=== PATIENT | male | born 2000 | race Asian ===

== ENCOUNTER 2025-05-07 17:52 | Emergency (ER) | payer BC, SELFPAY ==
[2025-05-07 18:14] VITALS: BP 139/80; PULSE 99; RESP 18; TEMP 38.3; O2SAT 98
--- NOTE | 2025-05-07 18:39 | XR_ITS ---
Examination: PA lateral chest 2 views TECHNIQUE: Upright PA and lateral chest 2 views Date and time: May 07, 2025, 1842 hours INDICATIONS: Fever coughing beginning 18 days ago. FINDINGS: Normal heart size. Lungs are clear. The osseous structures are intact. IMPRESSION: No active disease.
[2025-05-07 19:11] LABS: Strep A Rapid Negative (Negative)
--- NOTE | 2025-05-07 20:15 | EDNOTE_ITS ---
<Statement entered by Della Pozo MD - 05/08/25 04:07> As co-signing physician, I was present and available for consult prn. I concur with the plan and care as documented by the midlevel provider. Upper Respiratory Inf. RME/HPI General Chief Complaint: Fever Stated Complaint: FEVER/COUGH X 8 DAYS Time Seen by Provider: 05/07/25 18:27 Arrival date/time: 05/07/25 17:52 RME / HPI RME / HPI Narrative: 25-year-old male presents to the ED with a complaint of fever of 101 degrees as well as a dry cough. He has had an associated headache. He denies any fever higher than the 101 documented here. He denies any runny nose, nasal congestion, ear pain, sore throat, sinus pressure or drainage, nausea or vomiting, diarrhea or abdominal pain. He denies any body aches. Related Data Previous Rx's ?Medication ?Instructions ?Recorded albuterol sulfate 90 mcg/actuation 2 puff inhalation Q 4H PRN 05/07/25 aerosol inhaler shortness of breath or wheez ing #8.5 grams azithromycin 250 mg tablet See Rx Instructions PO .COM PLEX #6 05/07/25 tabs benzonatate 200 mg capsule 200 mg PO TID PRN cough #15 caps 05/07/25 cetirizine 10 mg tablet (Zyrtec) 10 mg PO QDAY allergy symptoms #30 05/07/25 tabs Allergies Allergy/AdvReac Type Severity Reaction Status Date / Time No Known Allergies Allergy Verified 05/07/25 17:55 Review of Systems Review of Systems Systems Reviewed: All systems reviewed, normal except as documented Past Medical History Social History SMOKING STATUS: Never smoker ED Exam Narrative Physical exam: A&O, afebrile and non-toxic appearing 25-year-old male, no acute distress. Lung are diminished at the bases otherwise clear, RRR, Abdomen is soft, nontender, and non-distended. TMs and pharynx are without erythema. Nares are pale and boggy. No sinus tenderness noted. Moves all extremities well. Course Course Course Narrative: COVID, influenza A/B, and rapid strep are negative. XR chest reveals no active disease. Patient was given Tylenol 1 g p.o. Quality Measures none Orders Category Date Time Status Bedside COVID-19 Antigen Test NOW Care 05/07/25 18:39 Active Bedside Influenza A&B Antigen Test NOW Care 05/07/25 18:39 Completed XR chest 2V Stat Exams 05/07/25 18:39 Completed Strep A Rapid Stat Lab 05/07/25 18:46 Completed Acetaminophen Tab [Tylenol ES Tab] Med 05/07/25 20:14 Once 1,000 mg PO X1 ONE Vital Signs Vital signs: Vital Signs Temperature 101.0 F H 05/07/25 18:14 Pulse Rate 99 05/07/25 18:14 Respiratory Rate 18 05/07/25 18:14 Blood Pressure 139/80 H 05/07/25 18:14 Pulse Oximetry (%) 98 05/07/25 18:14 Oxygen Delivery Method Room Air 05/07/25 18:14 Upper Respiratory Infection MDM Narrative MDM Narrative:: Symptoms, exam and diagnostic studies are consistent with: Bronchitis. Patient was discharged home in stable condition with prescriptions for a Z-Devaughn, albuterol inhale, and Zyrtec. Patient/family advised to follow-up with their PCP in 24-48 hours. Encouraged to return to the ED for any new or worsening symptoms. Patient data External records reviewed:: None Clinical information provided by:: patient Social determinants that could affect healthcare access:: none Patient has the following chronic illnesses:: N/A How is presenting disease/condition affected by chronic disease/condition?: no chronic disease Evaluation data The following diagnostics were reviewed and interpreted by me:: lab results and radiology exam(s) Lab and/or radiology exams considered but not ordered:: N/A Interpretation Summary: As noted above Medications / Prescriptions Medications or Prescriptions considered but not ordered:: N/A Medication administrations:: Tylenol 1 g p.o. Consultations Consultation(s) initiated? (list below): No Diagnosis Upper Respiratory Differential Diagnosis: upper respiratory infection, otitis media, sinusitis, viral infection, bronchitis and influenza Most likely diagnosis given after review of the tests above:: Bronchitis Admission Indicated Admission indicated?: not indicated Explain why admission is indicated or not indicated:: Patient is stable for discharge Admission Request Was there a request for admission?: No Disposition Plan Disposition Plan: Discharge Discharge Attestation Discharge Attestation: The patient and all family members were given an opportunity to ask questions and understood the discharge instructions. Discharge instructions specifically effects, indications for sooner follow up or return to the emergency department, and the expected course of current diagnosis. Patient condition: Stable Discharge Plan Plan Patient Disposition: HOME (Self Care) Discharge Disposition comment: Stable Prescriptions/Referrals Prescriptions/Med Rec: New azithromycin 250 mg tablet See Rx Instructions .ROUTE .COMPLEX Qty: 6 0RF Rx Instructions: For 250 mg dose pack: take 500 mg today (day 1), then 250 mg for 4 days (days 2-5) albuterol sulfate 90 mcg/actuation HFA aerosol inhaler 2 puff inhalation Q4H PRN (Reason: shortness of breath or wheezing) Qty: 8.5 0RF benzonatate 200 mg capsule 200 mg PO TID PRN (Reason: cough) Qty: 15 0RF cetirizine [Zyrtec] 10 mg tablet 10 mg PO QDAY Qty: 30 0RF Referrals: Harinder Kerr MD [Primary Care Provider] - In 1 week Problem List Clinical Impression: Bronchitis Patient/Caregiver Discharge Instructions Education Materials: ED Upper Resp Infec Abx Tx Additional Instructions: Take the antibiotics as prescribed and complete the course even though you may be feeling better. Use the albuterol inhaler as well as the benzonatate to help control the cough. Zyrtec or [id number] antihistamine will help decrease the amount of drainage. Follow-up with your primary care physician in 24 to 48 hours. Return to the ED for any new or worsening symptoms. Print Language: Azeri Stand Alone Forms: Yaquelin Award Info., Patient Portal Info Letter PA/SONIA Supervising Physician PA/SONIA Supervising Physician: Dr. Pozo
[2025-05-07 20:25] VITALS: TEMP 38.3
[2025-05-07] MEDS: ACETAMINOPHEN 500 MG TABLET 1000 MG PO (20:25)
== END 2025-05-07 20:46 | disposition home or self-care (01) ==
PROVIDERS: Physician Assistant; Emergency Provider Emergency Medicine; PCP Family Medicine
DX: J40 Bronchitis, not specified as acute or chronic (principal)
CPT/HCPCS: 71046; 87400; 87651; 87811; 99283; A9270

== ENCOUNTER 2025-05-23 16:19 | Emergency (ER) | payer BC, SELFPAY ==
[2025-05-23 16:43] VITALS: BP 154/81; PULSE 118; RESP 18; TEMP 38.1; O2SAT 97; BMI 26.6
--- NOTE | 2025-05-23 16:51 | PD.EDRME ---
Rapid Medical Screening Exam RME Arrival date/time: 05/23/25 16:19 Chief Complaint: Flu Like Symptoms Vital signs: Vital Signs Temperature 100.6 F H 05/23/25 16:43 Pulse Rate 118 H 05/23/25 16:43 Respiratory Rate 18 05/23/25 16:43 Blood Pressure 154/81 H 05/23/25 16:43 Pulse Oximetry (%) 97 05/23/25 16:43 Oxygen Delivery Method Room Air 05/23/25 16:43 Pulse ox is 97% Vital signs reviewed by provider: Yes [facility] Narrative: Patient is a 25-year-old male who is here 2 weeks ago for bronchitis like symptoms sent home with antibiotics and he became better and returns saying that he had a relapse in his signs and symptoms of cough, fever, runny nose and wheezing.
[2025-05-23 17:25] LABS: Basophils # (Auto) 0.1 Thou/mm3 (0.0-0.2); Basophils % (Auto) 1 % (0-2.5); Eosinophils # (Auto) 0.1 Thou/mm3 (0.0-0.5); Eosinophils % (Auto) 1 % (0-10); Hematocrit 42.2 % (41.0-53.0); Hemoglobin 13.0 g/dL (13.5-16.0); Immature Granulocytes Auto 0.06 Thou/mm3 (0.00-0.00); Lymphocytes # (Auto) 2.5 Thou/mm3 (1.0-4.8); Lymphocytes % (Auto) 20 % (10-50); Mean Corpuscular HGB Conc 30.8 g/dl (31.0-37.0); Mean Corpuscular Hemoglobin 19.6 pg (25.0-35.0); Mean Corpuscular Volume 64 fL (80-100); Monocytes # (Auto) 1.1 Thou/mm3 (0.0-0.8); Monocytes % (Auto) 9 % (0-12); Neutrophils # (Auto) 8.4 Thou/mm3 (1.8-7.7); Neutrophils % (Auto) 69 % (37-80); Nucleated Red Blood Cell # 0.00 Thou/mm3 (0.00-0.00); Nucleated Red Blood Cell % 0 /100 WBC (0); Platelet Count 467 Thou/mm3 (140-440); RDW Standard Deviation 32.9 fL (35.1-43.9); Red Blood Count 6.64 Miln/mm3 (4.50-5.90); White Blood Count 12.2 Thou/mm3 (3.8-10.6)
[2025-05-23 17:40] LABS: Collection Type, Urine Clean Catch
[2025-05-23 17:47] LABS: Alanine Aminotransferase 65 U/L (10-49); Albumin, Serum 4.7 gm/dL (3.5-5.0); Albumin/Globulin Ratio 1.1 (1.2-2.2); Alkaline Phosphatase 70 U/L (46-116); Anion Gap 13 (7-16); Aspartate Amino Transferase 21 U/L (0-34); BUN/Creatinine Ratio 7 Ratio (12-20); Bilirubin,Total 0.3 mg/dL (0.3-1.2); Blood Urea Nitrogen 8 mg/dL (9-23); Calcium 9.6 mg/dL (8.3-10.6); Calcium (Corrected) 9.6 mg/dL (8.5-10.1); Carbon Dioxide 23.3 mMol/L (20.0-31.0); Chloride 102 mMol/L (98-107); Creatinine (Component) 1.2 mg/dL (0.6-1.3); Estimated Creatinine Clearance 84.9 mL/min (>60); Globulin 4.3 gm/dL (2.3-3.5); Glucose 111 mg/dL (74-106); Osmolality,Calculated 274 (275-295); Potassium 3.7 mMol/L (3.4-5.1); Sodium 138 mMol/L (136-145); Total Protein 9.0 gm/dL (5.7-8.2); eGFR > 60 See Note
[2025-05-23 17:49] LABS: Bilirubin,Urine Negative (Negative); Blood,Urine Negative (Negative); Clarity,Urine Clear (Clear/Hazy); Color,Urine Yellow (Lt Yel-Yel); Glucose, Urine Negative (Negative); Ketones,Urine Negative (Negative); Leukocyte Esterase,Urine Negative (Negative); Nitrite,Urine Negative (Negative); PH,Urine 5.5 (5.0-7.0); Protein,Urine Trace (Neg - Trace); RBC,Urine 2 /hpf (0-3); Specific Gravity,Urine 1.020 (1.001-1.035); Squamous Epithelial Cell,Urine 3 /hpf (0-5); Urobilinogen,Urine Negative mg/dL (0.0-1.0); WBC,Urine 2 /hpf (0-5)
--- NOTE | 2025-05-23 18:31 | XR_ITS ---
Examination: PA chest single view TECHNIQUE: Upright PA chest single view Date and time: May 23, 2025 1642 hours INDICATIONS: Coughing fever beginning one week ago FINDINGS: Normal heart size Suspicious for early left perihilar pneumonia Right lung. Intact osseous structures IMPRESSION: Suspicious for early left perihilar pneumonia
--- NOTE | 2025-05-23 18:34 | EDNOTE_ITS ---
Upper Respiratory Inf. RME/HPI General Chief Complaint: Flu Like Symptoms Stated Complaint: FEVER, COUGH Time Seen by Provider: 05/23/25 18:05 Arrival date/time: 05/23/25 16:19 RME / HPI RME / HPI Narrative: 25-year-old male who is here 2 weeks ago for bronchitis like symptoms sent home with antibiotics and he became better and returns saying that he had a relapse in his signs and symptoms of cough, fever, runny nose and wheezing. Patient denies any other complaints. No medications taken prior to ER visit. Related Data Previous Rx's ?Medication ?Instructions ?Recorded albuterol sulfate 90 mcg/actuation 2 puff inhalation Q 4H PRN 05/07/25 aerosol inhaler shortness of breath or wheez ing #8.5 grams azithromycin 250 mg tablet See Rx Instructions PO .COM PLEX #6 05/07/25 tabs benzonatate 200 mg capsule 200 mg PO TID PRN cough #15 caps 05/07/25 cetirizine 10 mg tablet (Zyrtec) 10 mg PO QDAY allergy symptoms #30 05/07/25 tabs levofloxacin 750 mg tablet 750 mg PO Q24H 7 days #7 ta bs 05/23/25 Allergies Allergy/AdvReac Type Severity Reaction Status Date / Time No Known Allergies Allergy Verified 05/07/25 17:55 Review of Systems Review of Systems Narrative Review of Systems: Review of system reviewed and within normal limits except mentioned in HPI ED Exam Narrative Physical exam: VITAL SIGNS: Reviewed. GENERAL APPEARANCE: Alert and interactive, follows commands, no acute distress, HEAD AND FACE: Non-traumatic. ENT: PERRL, pink conjunctivitis, eyelid no trauma, Mucous membrane moist. NECK: Supple, nontender, no nuchal rigidity. CHEST: No tenderness, no crepitus, no paradoxical movement, no retractions. LUNGS: Clear, well ventilated, symmetric, no rales, no wheezing, no ronchi, no stridor, good breath sounds bilaterally. HEART: Regular rate, regular rhythm, no murmur, no gallops. ABDOMEN: Soft, positive bowel sounds, nondistended, no guarding, nontender, no rebound, no masses, RECTAL: Deferred. GENITAL: Deferred. NEUROLOGICAL: Gross motor function intact sensory function intact, Appropriate for age. MUSCULOSKELETAL: low back nontender, full range of motion. EXTREMITIES: Nontender, full range of motion. SKIN: Color pink, dry, no rash, no lacerations, no abrasions, no contusions. LYMPHATICS: Deferred. Course Quality Measures none Orders Category Date Time Status XR chest 1V Stat Exams 05/23/25 18:31 Completed CBC Stat Lab 05/23/25 17:10 Completed COVID-19 Antigen (In-House) Stat Lab 05/23/25 Ordered Cocci Serology IgM with reflex to IgG [Cocci Serology, Lab 05/23/25 18:31 Ordered Unk History] Stat Comprehensive Metabolic Panel Stat Lab 05/23/25 17:10 Completed FLU A&B [Influenza A & B Rapid Panel] Stat Lab 05/23/25 16:58 Ordered Urinalysis Stat Lab 05/23/25 17:23 Completed Levofloxacin [Levaquin] Med 05/23/25 20:20 Discontinued 500 mg PO X1 ONE Vital Signs Vital signs: Vital Signs Temperature 100.6 F H 05/23/25 16:43 Pulse Rate 118 H 05/23/25 16:43 Respiratory Rate 18 05/23/25 16:43 Blood Pressure 154/81 H 05/23/25 16:43 Pulse Oximetry (%) 97 05/23/25 16:43 Oxygen Delivery Method Room Air 05/23/25 16:43 Upper Respiratory Infection MDM Narrative MDM Narrative:: 25-year-old male who is here 2 weeks ago for bronchitis like symptoms sent home with antibiotics and he became better and returns saying that he had a relapse in his signs and symptoms of cough, fever, runny nose and wheezing. Patient denies any other complaints. No medications taken prior to ER visit. Patient's workup today significant for pneumonia otherwise unremarkable. I suspect patient is probably having valley fever. I did a valley fever evaluation, results will be back in 2 days. Patient was advised to follow-up with PCP or call emergency room for the results. Patient data External records reviewed:: None Clinical information provided by:: patient Social determinants that could affect healthcare access:: none Patient has the following chronic illnesses:: None How is presenting disease/condition affected by chronic disease/condition?: no chronic disease Evaluation data The following diagnostics were reviewed and interpreted by me:: lab results and radiology exam(s) Lab and/or radiology exams considered but not ordered:: None Interpretation Summary: See results MDM Medications / Prescriptions Medications or Prescriptions considered but not ordered:: None Medication administrations:: Medication Administration History Discontinued Medications Levofloxacin (Levofloxacin 250 Mg Tablet) 500 mg PO X1 ONE Stop: 05/23/25 20:21 Last Admin: 05/23/25 20:28 Dose: 500 mg Documented By: FRANCISCO Arora Consultations Consultation(s) initiated? (list below): No Diagnosis Upper Respiratory Differential Diagnosis: upper respiratory infection, influenza and other (Fever) Most likely diagnosis given after review of the tests above:: Pneumonia Admission Indicated Admission indicated?: not indicated Admission Request Was there a request for admission?: No Disposition Plan Disposition Plan: Discharge Discharge Attestation Discharge Attestation: The patient and all family members were given an opportunity to ask questions and understood the discharge instructions. Discharge instructions specifically effects, indications for sooner follow up or return to the emergency department, and the expected course of current diagnosis. Patient condition: Stable Discharge Plan Plan Patient Disposition: HOME (Self Care) Discharge Disposition comment: Stable Prescriptions/Referrals Prescriptions/Med Rec: New levofloxacin 750 mg tablet 750 mg PO Q24H 7 Days Qty: 7 0RF No Action azithromycin 250 mg tablet See Rx Instructions .ROUTE .COMPLEX Qty: 6 0RF Rx Instructions: For 250 mg dose pack: take 500 mg today (day 1), then 250 mg for 4 days (days 2-5) albuterol sulfate 90 mcg/actuation HFA aerosol inhaler 2 puff inhalation Q4H PRN (Reason: shortness of breath or wheezing) Qty: 8.5 0RF benzonatate 200 mg capsule 200 mg PO TID PRN (Reason: cough) Qty: 15 0RF cetirizine [Zyrtec] 10 mg tablet 10 mg PO QDAY Qty: 30 0RF Referrals: No Primary/Family,Physician [Primary Care Provider] - In 1 week Problem List Clinical Impression: Pneumonia Patient/Caregiver Discharge Instructions Discharge Activity: activity as tolerated Education Materials: ED Pneumonia (Adult) Additional Instructions: Thank you for the opportunity for serving you today. You are stable for discharged . You are advised to: Follow-up with your PCP in 1 to 2 days Return to ED for worsening of symptoms Increase oral fluids Take medication as prescribed Follow-up with medical records or call emergency room in 2 days regarding your cocci results Print Language: Georgian Stand Alone Forms: Yaquelin Award Info., Patient Portal Info Letter PA/COMPUTER AIDED DESIGN DESIGNER Supervising Physician PA/COMPUTER AIDED DESIGN DESIGNER Supervising Physician: MD Nohemy
[2025-05-23] MEDS: LEVOFLOXACIN 250 MG TABLET 500 MG PO (20:28)
[2025-05-23 20:50] VITALS: BP 143/94; PULSE 112; RESP 16; TEMP 37.3; O2SAT 97
[2025-05-24 12:10] LABS: Cocci Serology, IgM Positive (Negative)
[2025-05-24 12:10] LABS: Cocid Sro, CF/ID (UCD) NO CHG* See Sep Rpt
== END 2025-05-23 20:51 | disposition home or self-care (01) ==
PROVIDERS: Nurse Practitioner Family; Physician Assistant; Emergency Provider Emergency Medicine
DX: J18.9 Pneumonia, unspecified organism (principal)
CPT/HCPCS: 36415; 71045; 80053; 81001; 85025; 86635; 87400; 87502; 87811; 99283; A9270